=== PATIENT | female | born 1980 | race Two or more races ===

== ENCOUNTER 2025-01-03 13:38 | Emergency (ER) | payer MEDICAID ==
[~2025-01-03] VITALS: Ht 162.6 cm; Wt 83.0 kg
--- NOTE | 2025-01-03 14:15 | ED.PDOC ---
[employer]ING [employer]PECTOR HPI Comments 44y F who presents to the ED for chief complaint of vaginal bleeding. Pt states she has been having vaginal bleeding since 1 days prior. Pt states she has some light bleeding 1 days prior but states today, she started having bleeding and states she has passed multiple blood clots. Pt states LMP is 09/2024 and is currently , with 2 prior miscarriages. Pt in the ED, noted to be tachycardic at 142. Pt otherwise has noted lower abdominal pelvic pain, cramping in nature, with no associated exacerbating or relieving factors. Pt otherwise denies any other symptoms at this time. Chief Complaint: Vaginal Bleed Time Seen by MD: 14:12 Reviewed Notes: Medications, Allergies Allergies: Coded Allergies: NO KNOWN ALLERGIES (Unverified , 01/03/25) Home Meds Active Scripts Nitrofurantoin Monohydrate Mac (Macrobid) 100 Mg Cap, 100 MG PO BID for 5 Days, #10 CAP Prov:RICK JUAREZ MD 01/03/25 Information Source: Patient Mode of Arrival: Ambulatory Brought in by: self Timing: Hours Prehospital treatment: None Severity: Moderate Vaginal Discharge: None Vaginal Lesions: None Bleeding Quality: Bright Red, Clotted Vaginal Mass: None Onset Of Mass/Bleeding: Spontaneous Sexual Activity: Neither Last Consensual [place]: Hours Control: None Blood Type: Unknown Symptoms of Possible : None Associated Signs and Symptoms: Vaginal Bleeding Past Medical History Past Medical History (Other): gallstones Surgical History: Denies all surgeries 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: 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 Family History Family History: Reviewed,noncontributory to illness Social History Smoker: Non-Smoker Alcohol: Denies ETOH Use Drugs: Denies Drug Use Constitutional: denies: chills, diaphoresis, fatigue, fever, malaise, sweats, weakness, others EENTM: denies: blurred vision, double vision, ear bleeding, ear discharge, ear drainage, ear pain, ear ringing, eye pain, eye redness, hearing loss, mouth pain, mouth swelling, nasal discharge, nose bleeding, nose congestion, nose pain, photophobia, tearing, throat pain, throat swelling, voice changes, others Respiratory: denies: cough, hemoptysis, orthopnea, SOB at rest, shortness of breath, SOB with excertion, stridor, wheezing, others Cardiovascular: denies: chest pain, dizzy spells, diaphoresis, Dyspnea on ex ertion, edema, irregular heart beat, left arm pain, lightheadedness, palpitations, PND, syncope, others Gastrointestinal: reports: abdominal pain; denies: abdomen distended, blood streaked bowels, constipated, diarrhea, dysphagia, difficulty swallowing, hematemesis, melena, nausea, poor appetite, poor fluid intake, rectal bleeding, rectal pain, vomiting, others Genitourinary: reports: abnormal vagina bleeding; denies: burning, dyspareunia, dysuria, flank pain, frequency, hematuria, incontinence, pain, , vagina discharge, urgency, others Neurological: denies: dizziness, fainting, headache, left sided numbness, left sided weakness, numbness, paresthesia, pre-existing deficit, right sided numbness, right sided weakness, seizure, speech problems, tingling, tremors, weakness, others Musculoskeletal: denies: back pain, gout, joint pain, joint swelling, muscle pain, muscle stiffness, neck pain, others Integumetry: denies: bruises, change in color, change in hair/nails, dryness, laceration, lesions, lumps, rash, wounds, others Allergic/Immunocompromised: denies: Difficulty Healing, Frequent Infections, Hives, Itching, others Hematologic/Lymphatic: denies: anemia, blood clots, easy bleeding, easy bruising, swollen glands, others Endocrine: denies: excessive hunger, excessive sweating, excessive thirst, excessive urination, flushing, intolerance to cold, intolerance to heat, unexplained weight gain, unexplained weight loss, others Psychiatric: denies: anxiety, bipolar disorder, depression, hopeless, panic disorder, schizophrenia, sleepless, suicidal, others All Other Systems: Reviewed and Negative Physical Exam General Appearance: No Apparent Distress HEENT: Normal ENT Inspection, Pharynx Normal, TMs Normal Neck: Full Range of Motion, Non-Tender, Normal, Normal Inspection Respiratory: Chest Non-Tender, Lungs Clear, No Accessory Muscle Use, No Respiratory Distress, Normal Breath Sounds Cardiovascular: No Edema, No JVD, No Murmur, No Gallop, Normal Peripheral Pulses, Regular Rate/Rhythm Breast Exam: Deferred Gastrointestinal: No Organomegaly, Non Tender, No Pulsatile Mass, Normal Bowel Sounds, Soft Genitalia: Deferred Pelvic: Deferred Rectal: Deferred Extremities: No calf tenderness, Normal capillary refill, Normal inspection, Normal range of motion, Non-tender, No pedal edema Musculoskeletal : Apperance: Normal Neurologic: Alert, fuel dock attendant II-XII nml as Tested, No Motor Deficits, Normal Affect, Normal Mood, No Sensory Deficits Cerebellar Function: Normal Reflexes: Normal Skin: Dry, Normal Color, Warm Lymphatic: No Adenopathy Was a procedure done? Was a procedure done?: No EKG EKG : Pulse Rate (adult): 118 [place]: Normal Cardiac Rhythm: ST Block: None Hypertrophy: None ST: Normal Differential Diagnosis (SYRUP FILTERER) Vaginal Bleeding: - Complete, - Incomplete, - Inevit able, - Missed, Blood Loss Anemia, Cervicitis, Dysmenorrhea, Hormonal, Menorrhagia, UTI, Vaginitis, Other (miscarriage) X-Ray, Labs, Meds, VS Vital Signs Date Time Temp Pulse Resp B/P (MAP) Pulse Ox O2 Delivery O2 Flow Rate FiO2 01/03/25 14:43 128 16 98 Room Air* 0 21 01/03/25 14:43 98.2 128 16 154/99 (117) 98 98.2 01/03/25 14:15 118 01/03/25 13:58 118 01/03/25 13:57 98.2 142 20 120/94 (103) 97 Lab Test 01/03/25 14:08 01/03/25 13:55 Range/Units White Blood Count 15.1 H 4.4-10.8 10^3/uL Red Blood Count 4.42 4.0-5.20 10^6/uL Hemoglobin 13.4 12.2-16.2 g/dL Hematocrit 39.6 36.0-46.0 % Mean Corpuscular Volume 89.6 80.0-100.0 fL Mean Corpuscular Hemoglobin 30.4 28.0-32.0 pg Mean Corpuscular Hemoglobin Concent 34.0 32.0-36.0 g/dL Red Cell Distribution Width 12.7 11.8-14.3 % Platelet Count 262 140-450 10^3/uL Mean Platelet Volume 8.5 6.9-10.8 fL Neutrophils (%) (Auto) 86.8 H 37.0-80.0 % Lymphocytes (%) (Auto) 8.8 L 10.0-50.0 % Monocytes (%) (Auto) 3.5 0.0-12.0 % Eosinophils (%) (Auto) 0.3 0.0-7.0 % Basophils (%) (Auto) 0.6 0.0-2.0 % Neutrophils # (Auto) 13.1 H 1.6-8.6 10 ^3/uL Lymphocytes # (Auto) 1.3 0.4-5.4 10 ^3/uL Monocytes # (Auto) 0.5 0-1.3 10 ^3/uL Eosinophils # (Auto) 0 0-0.8 10 ^3/uL Basophils # (Auto) 0.1 0-0.2 10 ^3/uL Nucleated Red Blood Cells 0.1 % Sodium Level 138 136-145 mmol/L Potassium Level 3.4 L 3.5-5.1 mmol/L Chloride Level 106 98-107 mmol/L Carbon Dioxide Level 21 20-31 mmol/L Anion Gap 11 5-15 Blood Urea Nitrogen 10 9-23 mg/dL Creatinine 0.74 0.550-1.02 mg/dL Glomerular Filtration Rate Calc 104 >90 mL/min BUN/Creatinine Ratio 13.5 10.0-20.0 Serum Glucose 155 H 74-106 mg/dL Calcium Level 9.5 8.7-10.4 mg/dL Beta HCG, Quantitative 979.2 H 1.5-4.2 mIU/mL Urine Color Pending Urine Clarity Pending Urine pH Pending Urine Specific [place] Pending Urine Protein Pending Urine Ketones Pending Urine Blood Pending Urine Nitrite Pending Urine Bilirubin Pending Urine Urobilinogen Pending Urine Leukocyte Esterase Pending Urine RBC Pending Urine Microscopic WBC Pending Urine Squamous Epithelial Cells Pending Urine Bacteria Pending Urine Glucose Pending Urine Opiates Screen Neg NEGATIVE Urine Fentanyl Screen Neg NEGATIVE Urine Barbiturates Screen Neg NEGATIVE Urine Phencyclidine Screen Neg NEGATIVE Urine Amphetamines Screen Neg NEGATIVE Urine Benzodiazepines Screen Neg NEGATIVE Urine Cocaine Screen Neg NEGATIVE Urine Cannabinoids Screen Neg NEGATIVE Current Medications Medications (Trade) Dose Ordered Sig/[place] Route Start Time Stop Time Status Last Admin Sodium Chloride 500 ml @ 500 mls/hr Q1H ONCE IV 01/03/25 14:15 01/03/25 15:14 DC 01/03/25 14:40 Lorazepam (Ativan Inj) 1 mg ONCE ONCE IV 01/03/25 14:15 01/03/25 14:16 DC 01/03/25 14:40 The urine tox is negative The patient's CBC shows an elevated white blood cell count of 15.1 The quantitative hCG is 979.2 The patient has a 1 L bolus of normal saline The patient was feeling somewhat anxious so was given Ativan 1 mg IV push The patient was being discharged at this time The patient will follow up with the primary care doctor The patient was given a prescription of Macrobid for UTI They were told to repeat the quantitative hCG to follow the or lack of Images Reviewed?: Images reviewed and evaluated by me Time of 1ST Reevaluation: 14:45 Reevaluation 1ST: Unchanged Patient Education/Counseling: Diagnosis, Treatment, Prognosis, Need For Follow Up Family Education/Counseling: No Family Present Additional Information -Reviewed patient's previous visit(s): - The following tests were ordered, and results were reviewed by me:cbc, type and screen, beta hcg, bmp, drug screen, - Additional information was gathered from interviewing the following independent Historian: patient - I reviewed and agreed with the following test results read by other provider: none - I discussed treatments and results with medical personnel and: patient Comprehensive systems review obtained and negative except for what is stated in the HPI. Departure 1 Departure Time of Disposition: 20:14 Impression: Primary Impression: Status post therapeutic Additional Impressions: UTI (urinary tract infection) Qualified Codes: N30.00 - Acute cystitis without hematuria Abdominal pain Qualified Codes: R10.9 - Unspecified abdominal pain Disposition: HOME / SELF CARE / HOMELESS Condition: Fair e-Prescriptions Nitrofurantoin Monohydrate Mac (Macrobid) 100 Mg Cap 100 MG PO BID for 5 Days, #10 CAP Prov: RICK JUAREZ MD 01/03/25 Discharged With: Self Critical Care Note Critical Care Time?: No Stability Stability form required: No Heart Score Heart Score: Heart Score Response (Comments) Value History N/A 0 EKG N/A 0 Age N/A 0 Risk Factors N/A 0 Troponin N/A 0 Total 0 I personally scribed for RICK JUAREZ MD ([email or web address]) on 01/03/25 at 14:15. Electronically submitted by Troy Lynne ([email or web address]). I personally scribed for RICK JUAREZ MD ([email or web address]) on 01/03/25 at 14:15. Electronically submitted by Troy Lynne ([email or web address]). RICK JUAREZ MD Jan 03, 2025 14:15
[2025-01-03 14:32] LABS: Basophils # (auto) 0.1 10 ^3/uL (0-0.2); Basophils % (auto) 0.6 % (0.0-2.0); Eosinophils # (auto) 0 10 ^3/uL (0-0.8); Eosinophils % (auto) 0.3 % (0.0-7.0); Hematocrit 39.6 % (36.0-46.0); Hemoglobin 13.4 g/dL (12.2-16.2); Lymphocytes # (auto) 1.3 10 ^3/uL (0.4-5.4); Lymphocytes % (auto) 8.8 % (10.0-50.0); Mean Corpuscular Hemoglobin 30.4 pg (28.0-32.0); Mean Corpuscular Volume 89.6 fL (80.0-100.0); Monocytes # (auto) 0.5 10 ^3/uL (0-1.3); Monocytes % (auto) 3.5 % (0.0-12.0); Neutrophils # (auto) 13.1 10 ^3/uL (1.6-8.6); Neutrophils % (auto) 86.8 % (37.0-80.0); Nucleated Red Blood Cells % 0.1 %; Platelet Count (auto) 262 10^3/uL (140-450); Red Blood Cells 4.42 10^6/uL (4.0-5.20); Red Cell Distribution Width 12.7 % (11.8-14.3); White Blood Cell 15.1 10^3/uL (4.4-10.8)
[2025-01-03] MEDS: SODIUM CHLORIDE 0.9% 500 ML IV ONE (14:40)
[2025-01-03] MEDS: LORazepam 2MG/ML-1ML VIAL IV ONE (14:40)
[2025-01-03 14:42] LABS: Chloride 106 mmol/L (98-107); Sodium 138 mmol/L (136-145)
[2025-01-03 14:43] VITALS: PULSE 128; RESP 16; O2SAT 98
[2025-01-03 14:43] LABS: Anion Gap 11 (5-15); Calcium 9.5 mg/dL (8.7-10.4); Carbon Dioxide 21 mmol/L (20-31)
[2025-01-03 14:48] LABS: BUN/Creatinine Ratio 13.5 (10.0-20.0); Blood Urea Nitrogen 10 mg/dL (9-23)
[2025-01-03 14:56] LABS: Glucose 155 mg/dL (74-106); Potassium 3.4 mmol/L (3.5-5.1)
[2025-01-03 15:28] LABS: Phencyclidine Screen, Urine Neg (NEGATIVE)
[2025-01-03 15:29] LABS: Amphetamine Screen, Urine Neg (NEGATIVE); Barbiturate Scree,Urine Neg (NEGATIVE); Benzodiazephine Screen, Urine Neg (NEGATIVE); Cannabinoid Screen, Urine Neg (NEGATIVE); Cocaine Screen, Urine Neg (NEGATIVE); Opiate Scree,Urine Neg (NEGATIVE)
--- NOTE | 2025-01-03 18:57 | DVH ---
OB ULTRASOUND <14 WEEKS: HISTORY: bleeding TECHNIQUE: Multiple real-time grayscale sonographic images of the pelvis with duplex Doppler color f low, spectral and M-mode analysis. TRANSDUCERS: Transabdominal FINDINGS: The uterus measures 10.1 x 5.6 by 5.9 cm. Endometrium measures 14.5 mm. The cervix not measured. Right ovary measures 3.2 x 3.1 x 1.3 cm with normal Doppler color flow. Left ovary measures 1.9 x 1.1 x 1.8 cm with normal Doppler color flow. 1 cm cystic structure in the endometrial canal with no pole or yolk sac. heart rate not detected. Yolk sac not visualized. IMPRESSION: 1. 1 cm cystic area in the endometrial canal. No pole no heart rate visualized. 2. Recommend follow-up study. HS:Y
[2025-01-03] MEDS ORDERED: NITR-87 PO (20:15)
[2025-01-03 21:06] VITALS: BP 135/86; PULSE 109; RESP 20; TEMP 98.1; O2SAT 98
[2025-01-03 21:30] LABS: Urine Blood 3+ /uL (Negative); Urine Clarity Ex.Turbid (Clear); Urine Color Dark-Red (Yellow); Urine Hyaline Cast FEW /lpf (0 - 2); Urine Protein, UAD 2+ (Negative); Urine Specific Gravity 1.045 (1.001-1.035); Urine Squamous Epithelial Cell None Seen /hpf (<5); Urine Urobilinogen Normal (Negative); Urine WBC 14 /HPF (0-5)
--- NOTE | 2025-01-04 12:23 | ECG ---
[facility] Test Date: 2025-01-03 Test Time: 13:58:20 Pat Name: FERMÍN PEREZ Department: ER Room: Gender: F Ob/Gyn Doctor: : 1980 Requested By: RICK JUAREZ Order Number: [id number] Reading MD: Geo Baez Measurements Intervals [place] Rate: 118 P: 57 IA: 141 QRS: 26 QRSD: 72 T: 27 QT: 304 QTc: 427 Interpretive Statements Sinus tachycardia Electronically Signed On 01-06-2025 17:38:43 PST by Geo Baez Please click the below link to view image of tracing.
== END 2025-01-03 21:10 | disposition home or self-care (01) ==
LOC: ER 13:38
DX: O04.80 (Induced) termination of pregnancy with unspecified complications (principal); N39.0 Urinary tract infection, site not specified; R10.30 Lower abdominal pain, unspecified; N93.9 Abnormal uterine and vaginal bleeding, unspecified; R10.2 Pelvic and perineal pain; Z79.899 Other long term (current) drug therapy
CPT/HCPCS: 36415; 76801; 76817; 80048; 80307; 81001; 84702; 85025; 86850; 86900; 86901; 93005; 96374; 99285; J2060